=== PATIENT | male | born 1970 | race Caucasian/White ===

== ENCOUNTER 2017-07-27 08:30 | Emergency (ER) | payer MEDICARE ==
[2016-01-30 12:22] VITALS: BMI 48.8
[~2017-07-27 08:30] MED LIST: CALAN120 MG PO; CATAPRES0.1 MG PO; COLCRYS0.6 MG PO; FUROSEMIDE20 MG PO; HYDRALAZINE HCL25 MG PO; HYDROCODONE-APA1 TAB PO; ISOSORBIDE MONO60 M1 PO; METOPROLOL TART50 MG PO; NEURONTIN 300300 MG PO; PHENERGAN25 M1 PO; PHOSLO667 MG PO; SODIUM BICARBO650 MG PO; ZYLOPRIM100 MG PO
[2017-07-27 10:15] LABS: BASOPHILS 0.1 % (0-2); EOSINOPHILS 3.4 % (0-7); HEMATOCRIT 37.2 % (42.0-54.0); HEMOGLOBIN 12.1 g/dL (13.5-17.5); IMMATURE GRANULOCYTES 0.3 % (0-5); LYMPHOCYTES 18.9 % (15-50); MCH 29.3 pg (26.0-34.0); MCHC 32.5 g/dL (31.0-37.0); MCV 90.1 fL (80.0-100.0); MEAN PLATELET VOLUME 10.2 fL (7.4-10.4); MONOCYTES 8.8 % (2-11); NEUTROPHILS 68.5 % (40-80); PLATELET COUNT 172 10x3/uL (130-400); RBC 4.13 10x6/uL (4.20-6.10); RDW 14.6 % (11.5-14.5); WBC 8.8 10x3/uL (4.8-10.8)
[2017-07-27 10:26] LABS: ALBUMIN 3.6 g/dL (3.4-5.0); ANION GAP 17.9 mmol/L (8-16); BILIRUBIN - TOTAL 0.3 mg/dL (0.2-1.3); CALCIUM 9.4 mg/dL (8.5-10.1); CARBON DIOXIDE 24.4 mmol/L (21.0-32.0); CREATININE - SERUM 15.6 mg/dL (0.6-1.3); POTASSIUM - SERUM 4.3 mmol/L (3.5-5.1); PROTEIN - SERUM 8.4 g/dL (6.4-8.2); URIC ACID 6.1 mg/dL (2.6-7.2)
== END 2017-07-27 14:13 | disposition home or self-care (01) ==
LOC: D.ER 08:30
PROVIDERS: Family Medicine
DX: M48.56XA Collapsed vertebra, not elsewhere classified, lumbar region, initial encounter for fracture (principal); I12.0 Hypertensive chronic kidney disease with stage 5 chronic kidney disease or end stage renal disease; N18.6 End stage renal disease; Z99.2 Dependence on renal dialysis; Z12.5 Encounter for screening for malignant neoplasm of prostate

== ENCOUNTER → 2017-12-17 10:12 | Outpatient (CLI) | payer MEDICARE ==
[2016-01-30 12:22] VITALS: BMI 48.8
[~2017-12-17 10:12] MED LIST changes: +RENVELA800 MG PO
== END | disposition home or self-care (01) ==
LOC: D.NM 10:12
DX: N25.81 Secondary hyperparathyroidism of renal origin (principal); N18.6 End stage renal disease

== ENCOUNTER 2017-12-24 05:23 | Inpatient (IN) | payer MEDICARE ==
[~2017-12-24] VITALS: Ht 188 cm; Wt 162.7 kg
--- NOTE | ~2017-12-24 | DS ---
PATIENT:KATIANA QUEVEDO :74 MEDICAL RECORD: [id number] DISCHARGE SUMMARY ADMISSION DATE: 12/24/17 DISCHARGE DATE: 01/01/18 HISTORY OF PRESENT ILLNESS: Mr. 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 Pedro[address] HOSPITAL COURSE: The patient had been taken to surgery where he had a 3-1/2 gland parathyroidectomy. Postoperatively, he had severe bone hunger requiring large amounts of IV and p.o. calcium as well as IV and p.o. vitamin D. After a significant volume of calcium administered, his calcium stabilized above 7. His ionized calcium confirmed hypocalcemia. He underwent acute dialysis without difficulty on a high calcium bath. His wound healed nicely. He will continue his high calcium bath and IV vitamin D and p.o. vitamin D and calcium as an outpatient. DISCHARGE DIAGNOSES: 1. Status post 3-1/2 gland parathyroidectomy with benign tissue. 2. Severe bone hunger. 3. End-stage renal disease. 4. Dietary and medication noncompliance. 5. Hypertension. 6. Gout. 7. Chronic anemia. PLAN: The patient will be discharged today after dialysis. He will be back in dialysis at [facility] on Saturday on high calcium bath. He will resume his renal diet. DISCHARGE MEDICATIONS: Will be calcitriol 0.5 q.i.d., Renvela 2.4 t.i.d., clonidine 0.1 q.8 hours, metoprolol 100 b.i.d., Lasix 20 b.i.d., MiraLax 17 b.i.d., Calan 80 b.i.d., PhosLo 4 q.i.d., Colace p.r.n., Protonix 40 mg daily, and Nephro-Cristal 1 daily. TRANSINT:[id number] Voice Confirmation ID: [id number] DOCUMENT ID: [id number] LIZA PEREZ MD at 0653 CC: [id number] DICTATION DATE: 01/01/18813 LOCOMOTIVE ENGINEER DIESEL: 01/01/182109 DIS IN 01/01/18 [facility] [address] [place] [address]
--- NOTE | ~2017-12-24 | OP ---
PATIENT NAME: KATIANA QUEVEDO MEDICAL RECORD: [id number] :74 LOCATION:D. D.2117 ADMISSION DATE:12/24/17 SURGEON: RAHEEL SMITH MD DATE OF OPERATION: 12/24/2017 REFERRED BY: Romel Ortega MD PREOPERATIVE DIAGNOSES: End-stage renal disease, dependence on hemodialysis, secondary hyperparathyroidism, and sleep apnea. POSTOPERATIVE DIAGNOSES: End-stage renal disease, dependence on hemodialysis, secondary hyperparathyroidism, and sleep apnea. OPERATION PERFORMED: Neck exploration and 3-1/2 gland parathyroidectomy. SURGEON: Raheel Smith MD ANESTHESIA: General endotracheal per PUBLIC HEALTH DIRECTOR. PREOPERATIVE NOTE: Mr. Quevedo is a 47-year-old -[place] male with end-stage renal disease and secondary hyperparathyroidism with a bone cyst formation. He is to undergo parathyroidectomy today. Under general endotracheal anesthesia, the patient was placed in a lawn chair position with the head elevated and prepped and draped in a sterile manner. A transverse cervical incision was made and flaps raised and the strap muscles in the midline. Blunt dissection mobilized the strap muscles from the anterior surface of the thyroid gland. The left side was dissected first. Care was taken to identify the recurrent laryngeal nerve and a lot of the dissection and vessel division and coagulation was done with the Harmonic scalpel. There was no electrocautery utilized after the flaps were raised from off of the strap muscles. The patient was found very quickly to have a left lower pole parathyroid adenoma, which was about the size of brink fink. I mobilized the superior pole of the thyroid and found a similar sized superior parathyroid adenoma. I removed it and this was sent for frozen section and confirmed to be parathyroid. I then began dissection on the right side and exposed the right superior parathyroid first after mobilizing the superior pole and with further dissection mobilizing the inferior pole, I found the lower right parathyroid gland. That gland also was the same size and brink fink shaped. It was resected and sent for frozen section. Again, this was confirmed as parathyroid adenoma. I then took 3/4 or thereabouts of the right upper gland using the harmonic luis. That specimen was confirmed as parathyroid adenoma and then I removed the entire left lower parathyroid gland and frozen section confirmed that as well. There was a small nodule adjacent to the pyramidal lobe of the thyroid, which had a mildly parathyroid like appearance. This was resected and frozen section identified that as a benign thyroid nodule. The wounds were irrigated with saline. Hemostasis was found to be excellent. The wound was still drained with a single 10 mm diameter close suction drain, Aj type drain, which was brought out with a trocar and attached to suction. The strap muscles were approximated in the midline, after which the anterior surface of the straps and the platysma were infiltrated with 0.25% Marcaine with epinephrine. The platysma was approximated with interrupted inverted 3-0 Vicryl and the skin was closed with running intracuticular 4-0 Monocryl. The skin was sealed with Dermabond glue and dressed with Maxorb Ag, Tegaderm, and Cavilon OPERATIVE REPORT [id number] KATIANA QUEVEDO skin prep. The patient was awakened and extubated and taken to the recovery room. Note, both recurrent laryngeal nerves were identified during the dissection and spared from trauma. Blood loss during the operation was exceedingly minimal. Despite that, I did leave one drain in case there should be postoperative oozing or bleeding. All sponges, instruments, and needles were accounted for and the surgical specimens were as described above. PLAN: The patient will be kept in the hospital as an inpatient today. He will have dialysis here tomorrow. His calcium and magnesium levels will be monitored. I plan to repeat an intact serum parathyroid hormone tomorrow and he will be given supplementation of calcium and magnesium. When he is stable on oral supplements, he will be discharged I am sure by Dr. Ortega. TRANSINT:[id number] Voice Confirmation ID: [id number] DOCUMENT ID: [id number] RAHEEL SMITH MD at 1645 CC: [id number] DICTATION DATE: 12/24/[address] LIGHT MECHANIC: 12/24/17 1243 ADM IN [facility] [address] [place] [address]
[~2017-12-24 05:23] MED LIST changes: -RENVELA800 MG PO
[2017-12-24 05:55] LABS: BASOPHILS 0 % (0-2); EOSINOPHILS 3.3 % (0-7); HEMATOCRIT 37.1 % (42.0-54.0); HEMOGLOBIN 11.8 g/dL (13.5-17.5); IMMATURE GRANULOCYTES 0.3 % (0-5); LYMPHOCYTES 32.4 % (15-50); MCH 28.9 pg (26.0-34.0); MCHC 31.8 g/dL (31.0-37.0); MCV 90.9 fL (80.0-100.0); MEAN PLATELET VOLUME 9.7 fL (7.4-10.4); MONOCYTES 9.4 % (2-11); NEUTROPHILS 54.6 % (40-80); PLATELET COUNT 180 10x3/uL (130-400); RBC 4.08 10x6/uL (4.20-6.10); RDW 14.6 % (11.5-14.5); WBC 5.8 10x3/uL (4.8-10.8)
[2017-12-24 06:08] LABS: APTT 32.9 SECONDS (22.8-39.4); INR 1.08 (0.85-1.17); PROTIME 13.6 SECONDS (11.6-15.0)
[2017-12-24 06:13] LABS: ANION GAP 17.7 mmol/L (8-16); CALCIUM 8.4 mg/dL (8.5-10.1); POTASSIUM - SERUM 4.7 mmol/L (3.5-5.1)
[2017-12-24] MEDS ORDERED: RENVELA800 MG PO (07:36)
[2017-12-24 07:48] VITALS: BMI 45.0
[2017-12-24 12:39] VITALS: BMI 45.0
[2017-12-24 15:54] VITALS: BP 159/85
[2017-12-24 20:26] LABS: MAGNESIUM - SERUM 2.1 mg/dL (1.8-2.4)
[2017-12-24 20:56] LABS: CALCIUM 13.6 mg/dL (8.5-10.1)
[2017-12-24 22:50] VITALS: BP 173/101
[2017-12-25 01:58] VITALS: BP 156/96
[2017-12-25 03:06] LABS: BASOPHILS 0 % (0-2); EOSINOPHILS 0 % (0-7); HEMATOCRIT 37.6 % (42.0-54.0); HEMOGLOBIN 12.1 g/dL (13.5-17.5); IMMATURE GRANULOCYTES 0.3 % (0-5); LYMPHOCYTES 7.7 % (15-50); MCH 29.1 pg (26.0-34.0); MCHC 32.2 g/dL (31.0-37.0); MCV 90.4 fL (80.0-100.0); MEAN PLATELET VOLUME 9.6 fL (7.4-10.4); MONOCYTES 7.4 % (2-11); NEUTROPHILS 84.6 % (40-80); RBC 4.16 10x6/uL (4.20-6.10); RDW 14.7 % (11.5-14.5)
[2017-12-25 03:07] LABS: PLATELET COUNT 223 10x3/uL (130-400); WBC 13.7 10x3/uL (4.8-10.8)
[2017-12-25 03:19] LABS: CARBON DIOXIDE 22.6 mmol/L (21.0-32.0); CREATININE - SERUM 17.9 mg/dL (0.6-1.3); PHOSPHOROUS 5.2 mg/dL (2.5-4.9)
[2017-12-25 03:49] LABS: ANION GAP 19.7 mmol/L (8-16); CALCIUM 7.6 mg/dL (8.5-10.1)
[2017-12-25 03:51] LABS: POTASSIUM - SERUM 7.3 mmol/L (3.5-5.1)
[2017-12-25 06:15] VITALS: BP 148/98
[2017-12-25 09:39] VITALS: BP 159/98
[2017-12-25 09:49] LABS: MAGNESIUM - SERUM 2.1 mg/dL (1.8-2.4)
[2017-12-25 09:52] LABS: POTASSIUM - SERUM 5.7 mmol/L (3.5-5.1)
[2017-12-25 13:52] LABS: CALCIUM 7.8 mg/dL (8.5-10.1)
[2017-12-25 13:58] LABS: POTASSIUM - SERUM 4.3 mmol/L (3.5-5.1)
[2017-12-25 14:42] VITALS: Ht 188 cm; Wt 162.7 kg
[2017-12-25 16:12] VITALS: BP 157/88
[2017-12-25 20:00] VITALS: BP 172/95
[2017-12-25 20:21] LABS: MAGNESIUM - SERUM 1.8 mg/dL (1.8-2.4); POTASSIUM - SERUM 4.3 mmol/L (3.5-5.1)
[2017-12-25 20:26] LABS: CALCIUM 6.9 mg/dL (8.5-10.1)
[2017-12-26] VITALS: BP 143/86
[2017-12-26 04:00] VITALS: BP 165/91
[2017-12-26 05:58] LABS: BASOPHILS 0.1 % (0-2); EOSINOPHILS 0.8 % (0-7); HEMATOCRIT 33.6 % (42.0-54.0); HEMOGLOBIN 10.9 g/dL (13.5-17.5); IMMATURE GRANULOCYTES 0.4 % (0-5); LYMPHOCYTES 21.1 % (15-50); MCH 29.1 pg (26.0-34.0); MCHC 32.4 g/dL (31.0-37.0); MCV 89.8 fL (80.0-100.0); MEAN PLATELET VOLUME 9.8 fL (7.4-10.4); MONOCYTES 8.2 % (2-11); NEUTROPHILS 69.4 % (40-80); RBC 3.74 10x6/uL (4.20-6.10); RDW 14.7 % (11.5-14.5)
[2017-12-26 06:13] LABS: ANION GAP 16.2 mmol/L (8-16); BILIRUBIN - TOTAL 0.22 mg/dL (0.2-1.3); CREATININE - SERUM 14.9 mg/dL (0.6-1.3); MAGNESIUM - SERUM 1.8 mg/dL (1.8-2.4); POTASSIUM - SERUM 4.2 mmol/L (3.5-5.1); PROTEIN - SERUM 7.2 g/dL (6.4-8.2)
[2017-12-26 06:15] LABS: PHOSPHOROUS 6.8 mg/dL (2.5-4.9)
[2017-12-26 06:17] LABS: CALCIUM 6.6 mg/dL (8.5-10.1)
[2017-12-26 06:19] LABS: PLATELET COUNT 156 10x3/uL (130-400); WBC 8.3 10x3/uL (4.8-10.8)
[2017-12-26 09:17] VITALS: BP 161/96
[2017-12-26 11:38] VITALS: BP 161/96
[2017-12-26 15:58] VITALS: BP 188/109
[2017-12-26 19:18] LABS: MAGNESIUM - SERUM 1.8 mg/dL (1.8-2.4)
[2017-12-26 19:26] LABS: CALCIUM 6.5 mg/dL (8.5-10.1)
[2017-12-26 20:00] VITALS: BP 172/92
[2017-12-27] VITALS: BP 150/86
[2017-12-27 04:00] VITALS: BP 110/79
[2017-12-27 05:21] LABS: BASOPHILS 0.1 % (0-2); EOSINOPHILS 2.4 % (0-7); HEMATOCRIT 32.5 % (42.0-54.0); HEMOGLOBIN 10.5 g/dL (13.5-17.5); IMMATURE GRANULOCYTES 0.1 % (0-5); LYMPHOCYTES 27.8 % (15-50); MCH 28.8 pg (26.0-34.0); MCHC 32.3 g/dL (31.0-37.0); MCV 89.3 fL (80.0-100.0); MEAN PLATELET VOLUME 9.1 fL (7.4-10.4); MONOCYTES 11.2 % (2-11); NEUTROPHILS 58.4 % (40-80); PLATELET COUNT 139 10x3/uL (130-400); RBC 3.64 10x6/uL (4.20-6.10); RDW 14.6 % (11.5-14.5); WBC 6.7 10x3/uL (4.8-10.8)
[2017-12-27 05:51] LABS: ALBUMIN 2.8 g/dL (3.4-5.0); ANION GAP 19.4 mmol/L (8-16); BILIRUBIN - TOTAL 0.36 mg/dL (0.2-1.3); CARBON DIOXIDE 26.3 mmol/L (21.0-32.0); CREATININE - SERUM 17.5 mg/dL (0.6-1.3); PHOSPHOROUS 7.1 mg/dL (2.5-4.9); POTASSIUM - SERUM 4.7 mmol/L (3.5-5.1); PROTEIN - SERUM 6.8 g/dL (6.4-8.2)
[2017-12-27 05:53] LABS: CALCIUM 6.4 mg/dL (8.5-10.1)
[2017-12-27 07:50] VITALS: BP 183/93
[2017-12-27 15:03] VITALS: BP 142/82
[2017-12-27 20:00] VITALS: BP 166/100
[2017-12-28] VITALS: BP 175/99
[2017-12-28 05:53] VITALS: BP 190/99
[2017-12-28 05:56] LABS: BASOPHILS 0.2 % (0-2); EOSINOPHILS 2.8 % (0-7); HEMATOCRIT 32.9 % (42.0-54.0); HEMOGLOBIN 10.6 g/dL (13.5-17.5); IMMATURE GRANULOCYTES 0.2 % (0-5); LYMPHOCYTES 21.3 % (15-50); MCH 28.7 pg (26.0-34.0); MCHC 32.2 g/dL (31.0-37.0); MCV 89.2 fL (80.0-100.0); MEAN PLATELET VOLUME 8.9 fL (7.4-10.4); MONOCYTES 15.1 % (2-11); NEUTROPHILS 60.4 % (40-80); PLATELET COUNT 126 10x3/uL (130-400); RBC 3.69 10x6/uL (4.20-6.10); RDW 14.6 % (11.5-14.5); WBC 6.4 10x3/uL (4.8-10.8)
[2017-12-28 06:23] LABS: ANION GAP 18.3 mmol/L (8-16); CALCIUM 7.3 mg/dL (8.5-10.1); CARBON DIOXIDE 27.2 mmol/L (21.0-32.0); CREATININE - SERUM 15.1 mg/dL (0.6-1.3); PHOSPHOROUS 5.9 mg/dL (2.5-4.9); POTASSIUM - SERUM 4.5 mmol/L (3.5-5.1)
[2017-12-28 07:59] VITALS: BP 218/95
[2017-12-28 10:46] VITALS: BP 104/91
[2017-12-28 15:47] VITALS: BP 220/108
[2017-12-28 20:00] VITALS: BP 191/68
[2017-12-29] VITALS: BP 189/122
[2017-12-29 04:00] VITALS: BP 185/96
[2017-12-29 06:02] LABS: BASOPHILS 0.2 % (0-2); EOSINOPHILS 3.4 % (0-7); HEMATOCRIT 34.5 % (42.0-54.0); HEMOGLOBIN 11.4 g/dL (13.5-17.5); IMMATURE GRANULOCYTES 0.6 % (0-5); LYMPHOCYTES 16.2 % (15-50); MCH 29.3 pg (26.0-34.0); MCV 88.7 fL (80.0-100.0); MEAN PLATELET VOLUME 10.1 fL (7.4-10.4); MONOCYTES 17.1 % (2-11); NEUTROPHILS 62.5 % (40-80); RBC 3.89 10x6/uL (4.20-6.10); RDW 14.3 % (11.5-14.5); WBC 5.3 10x3/uL (4.8-10.8)
[2017-12-29 06:10] LABS: PLATELET COUNT 67 10x3/uL (130-400)
[2017-12-29 06:46] LABS: ANION GAP 20.3 mmol/L (8-16); CALCIUM 7.2 mg/dL (8.5-10.1); CARBON DIOXIDE 24.5 mmol/L (21.0-32.0); CREATININE - SERUM 18.5 mg/dL (0.6-1.3); PHOSPHOROUS 5.4 mg/dL (2.5-4.9)
[2017-12-29 06:47] LABS: POTASSIUM - SERUM 5.8 mmol/L (3.5-5.1)
[2017-12-29 08:04] VITALS: BP 221/124
[2017-12-29 11:01] VITALS: BP 221/99
[2017-12-29 15:53] LABS: CALCIUM 7.2 mg/dL (8.5-10.1); CREATININE - SERUM 19.7 mg/dL (0.6-1.3)
[2017-12-29 20:00] VITALS: BP 179/95
[2017-12-30 00:11] VITALS: BP 165/90
[2017-12-30 04:00] VITALS: BP 169/87
[2017-12-30 06:30] LABS: HEMATOCRIT 33.3 % (42.0-54.0); MCH 29.4 pg (26.0-34.0); MEAN PLATELET VOLUME 9.8 fL (7.4-10.4); RBC 3.74 10x6/uL (4.20-6.10); RDW 14.4 % (11.5-14.5); WBC 5.3 10x3/uL (4.8-10.8)
[2017-12-30 06:35] LABS: PLATELET COUNT 119 10x3/uL (130-400)
[2017-12-30 08:00] LABS: ANISOCYTOSIS OCC; EOSINOPHILS 5 % (0-7); HYPOCHROMASIA OCC; LYMPHOCYTES 20 % (15-50); MONOCYTES 20 % (2-11); NEUTROPHILS 54 % (40-80); PLATELET ESTIMATE NORMAL
[2017-12-30 08:23] VITALS: BP 186/115
[2017-12-30 15:41] VITALS: BP 189/127
[2017-12-30 20:00] VITALS: BP 190/109
[2017-12-31] VITALS: BP 181/98
[2017-12-31 04:00] VITALS: BP 158/99
[2017-12-31 06:22] LABS: BASOPHILS 0.2 % (0-2); EOSINOPHILS 4.6 % (0-7); HEMATOCRIT 32.9 % (42.0-54.0); HEMOGLOBIN 10.8 g/dL (13.5-17.5); IMMATURE GRANULOCYTES 0.2 % (0-5); LYMPHOCYTES 35.1 % (15-50); MCHC 32.8 g/dL (31.0-37.0); MCV 88.4 fL (80.0-100.0); MEAN PLATELET VOLUME 9.5 fL (7.4-10.4); MONOCYTES 16.7 % (2-11); NEUTROPHILS 43.2 % (40-80); PLATELET COUNT 127 10x3/uL (130-400); RBC 3.72 10x6/uL (4.20-6.10); RDW 14.1 % (11.5-14.5); WBC 5.2 10x3/uL (4.8-10.8)
[2017-12-31 06:37] LABS: ANION GAP 16.5 mmol/L (8-16); CARBON DIOXIDE 28.8 mmol/L (21.0-32.0); CREATININE - SERUM 18.3 mg/dL (0.6-1.3); PHOSPHOROUS 6.8 mg/dL (2.5-4.9); POTASSIUM - SERUM 4.3 mmol/L (3.5-5.1)
[2017-12-31 06:39] LABS: CALCIUM 6.6 mg/dL (8.5-10.1)
[2017-12-31 08:00] VITALS: BP 120/70
[2017-12-31 11:40] VITALS: BP 143/104
[2017-12-31 20:21] VITALS: BP 195/106
[2018-01-01] VITALS: BP 149/103
[2018-01-01 04:00] VITALS: BP 169/105
[2018-01-01 06:01] LABS: BASOPHILS 0.2 % (0-2); EOSINOPHILS 4.8 % (0-7); HEMOGLOBIN 11.4 g/dL (13.5-17.5); IMMATURE GRANULOCYTES 0.2 % (0-5); LYMPHOCYTES 35.6 % (15-50); MCH 28.8 pg (26.0-34.0); MCHC 32.6 g/dL (31.0-37.0); MCV 88.4 fL (80.0-100.0); MEAN PLATELET VOLUME 10.2 fL (7.4-10.4); MONOCYTES 16.2 % (2-11); PLATELET COUNT 118 10x3/uL (130-400); RBC 3.96 10x6/uL (4.20-6.10); WBC 4.8 10x3/uL (4.8-10.8)
[2018-01-01 06:36] LABS: ANION GAP 16.8 mmol/L (8-16); CALCIUM 7.2 mg/dL (8.5-10.1); CARBON DIOXIDE 29.9 mmol/L (21.0-32.0); CREATININE - SERUM 14.5 mg/dL (0.6-1.3); PHOSPHOROUS 6.4 mg/dL (2.5-4.9); POTASSIUM - SERUM 4.7 mmol/L (3.5-5.1)
[2018-01-01 09:30] VITALS: BP 148/91
[2018-01-01] MEDS ORDERED: METOPROLOL TART50 MG PO (09:57)
[2018-01-01] MEDS ORDERED: ROCALTROL0.5 MCG PO (10:00)
== END 2018-01-01 14:40 | disposition home or self-care (01) | DRG 625 ==
LOC: D.OPS 05:23 → D.M2 05:23 → D.OPS 08:00 → D.M2 11:48 → D.OPS 11:49 → D.M2 11:50 → D.SDCHOLD 12-30 14:02 → D.M2 12-30 14:04
PROVIDERS: Internal Medicine Nephrology; Surgery
PROC: 0GBL0ZZ Excision of Right Superior Parathyroid Gland, Open Approach (ICD-10-PCS; 2017-12-24)
PROC: 0GBM0ZZ Excision of Left Superior Parathyroid Gland, Open Approach (ICD-10-PCS; principal; 2017-12-24 08:00)
PROC: 5A1D70Z Performance of Urinary Filtration, Intermittent, Less than 6 Hours Per Day (ICD-10-PCS; 2017-12-25)
DX: E83.51 Hypocalcemia (principal); N18.6 End stage renal disease; N25.81 Secondary hyperparathyroidism of renal origin; I13.2 Hypertensive heart and chronic kidney disease with heart failure and with stage 5 chronic kidney disease, or end stage renal disease; D35.1 Benign neoplasm of parathyroid gland; I50.9 Heart failure, unspecified; Z99.2 Dependence on renal dialysis; G47.33 Obstructive sleep apnea (adult) (pediatric); E83.39 Other disorders of phosphorus metabolism

== ENCOUNTER 2018-01-11 21:49 | Observation (INO) | payer MEDICARE ==
[~2018-01-11] VITALS: Ht 188 cm; Wt 146.1 kg
--- NOTE | ~2018-01-11 | MORECARE ---
CASE MANAGEMENT DISCHARGE SUMMARY PATIENT: KATIANA LARA UNIT: [id number] ADM DATE: 01/12/18 AGE: 47 : 74 SEX: M ROOM/BED: D.2130 AUTHOR: MICHELLE DAVIS PHYSICIAN: REFERRING PHYSICIAN: ONEIL ESPITIA MD DATE OF SERVICE: 01/13/18 Discharge Plan Patient Name: KATAINA LARA [facility] [facility] 1970 Planned Disposition: Home Anticipated Discharge Date: 01/12/18 Discharge Date: 01/12/2018 Expected LOS: 1 Initial Reviewer: [email or web address] Initial Review Date: 01/13/2018 Generated: 01/13/18 10:03 am Patient Name: KATIANA LARA Page [id number] at 0903 All edits/amendments must be made on the electronic document DICTATION DATE: 01/13/18901 FOILING MACHINE OPERATOR: SHERLEY 01/13/18901 RPT#: [id number] DC DATE:01/12/18 STATUS: DIS IN [facility] [address] [place] [address] END OF REPORT
[~2018-01-11 21:49] MED LIST changes: +RENVELA800 MG PO; +ROCALTROL0.5 MCG PO
[2018-01-11 22:38] LABS: BASOPHILS 0.2 % (0-2); EOSINOPHILS 4.2 % (0-7); HEMATOCRIT 34.3 % (42.0-54.0); IMMATURE GRANULOCYTES 0.3 % (0-5); LYMPHOCYTES 27.4 % (15-50); MCH 29.1 pg (26.0-34.0); MCHC 32.1 g/dL (31.0-37.0); MCV 90.7 fL (80.0-100.0); MEAN PLATELET VOLUME 9.5 fL (7.4-10.4); MONOCYTES 13.9 % (2-11); RBC 3.78 10x6/uL (4.20-6.10); WBC 6.6 10x3/uL (4.8-10.8)
[2018-01-11 22:39] LABS: PLATELET COUNT 175 10x3/uL (130-400)
[2018-01-11 22:49] LABS: INR 1.13 (0.85-1.17); PROTIME 14.1 SECONDS (11.6-15.0)
[2018-01-11 22:56] LABS: ALBUMIN 3.3 g/dL (3.4-5.0); ANION GAP 18.7 mmol/L (8-16); BILIRUBIN - TOTAL 0.28 mg/dL (0.2-1.3); CALCIUM 7.4 mg/dL (8.5-10.1); CREATININE - SERUM 15.4 mg/dL (0.6-1.3); POTASSIUM - SERUM 4.7 mmol/L (3.5-5.1); PROTEIN - SERUM 7.5 g/dL (6.4-8.2)
[2018-01-12] MEDS ORDERED: ZYLOPRIM100 MG PO (02:02)
[2018-01-12 02:09] VITALS: BP 134/67; BMI 41.3
[2018-01-12] MEDS ORDERED: PHOSLO667 MG PO (02:19)
[2018-01-12 04:49] VITALS: BP 145/68
[2018-01-12 08:52] VITALS: BP 145/78
[2018-01-12 10:16] VITALS: Ht 188 cm; Wt 146.1 kg
[2018-01-12 11:02] VITALS: BP 160/92
== END 2018-01-12 13:57 | disposition home or self-care (01) ==
LOC: D.ER 21:49 → OBSVTIME 01-12 01:15 → D.M2 01-12 01:15
PROVIDERS: Family Medicine
DX: T82.868A Thrombosis due to vascular prosthetic devices, implants and grafts, initial encounter (principal); Y83.8 Other surgical procedures as the cause of abnormal reaction of the patient, or of later complication, without mention of misadventure at the time of the procedure; I13.2 Hypertensive heart and chronic kidney disease with heart failure and with stage 5 chronic kidney disease, or end stage renal disease; N18.6 End stage renal disease; I50.9 Heart failure, unspecified; Z99.2 Dependence on renal dialysis; N25.81 Secondary hyperparathyroidism of renal origin

== ENCOUNTER → 2018-02-25 14:00 | Outpatient (CLI) | payer MEDICARE ==
[2018-01-12 10:16] VITALS: BMI 41.3
== END | disposition home or self-care (01) ==
LOC: D.MRI 14:00
DX: M46.96 Unspecified inflammatory spondylopathy, lumbar region (principal)